=== PATIENT | male | born 1945 | race Caucasian/White ===

== ENCOUNTER 2018-12-13 20:41 | Inpatient (IN) | payer OTHER ==
[~2018-12-13] VITALS: Ht 175.3 cm; Wt 82.7 kg
[2018-12-13 20:47] VITALS: Ht 175.3 cm; Wt 82.7 kg
--- NOTE | 2018-12-13 20:56 | NUR ---
PT RESTING IN BED, AAOX4 WITH C/O 4/10 EPIGASTRIC PAIN SINCE THIS AFTERNOON. PT STATES HE THINKS HE DRANK BAD WATER OR HE IS REACTING FROM TAKING GAS RELIEF MEDICATION THIS AFTERNOON. PT DENIES ANY N/V/D/C, FEVERS, URINARY PROBLEMS OR RESP ILLNESS. NO SIGNS OF DISTRESS AT THIS TIME. AT BEDSIDE.
[2018-12-13 21:26] LABS: BASOPHIL % 0 % (0-2); PLATELET COUNT 267 x10^3mcL (130-400); RED CELL DISTRIBUTION WIDTH 13.5 % (11.5-14.5)
[2018-12-13 21:39] LABS: CALCIUM 9.3 mg/dL (8.5-10.1); CARBON DIOXIDE 28.2 mmol/L (21-32); CHLORIDE SERUM 93 mmol/L (98-107); CREATININE SERUM 1.3 mg/dL (0.7-1.3); GLUCOSE SERUM 118 mg/dL (74-106); POTASSIUM SERUM 4.4 mmol/L (3.5-5.1); SODIUM SERUM 130 mmol/L (136-145)
[2018-12-13 21:43] LABS: ALBUMIN 3.7 g/dL (3.4-5.0); ALKALINE PHOSPHATASE 50 U/L (46-116); ALT/SGPT 26 U/L (16-63); AST/SGOT 19 U/L (15-37); BILIRUBIN TOTAL 0.8 mg/dL (0.20-1.00); TOTAL PROTEIN, SERUM 7.4 g/dL (6.4-8.2)
[2018-12-13 21:53] LABS: microscopic required? NO
[2018-12-13 22:17] LABS: UA SPECIFIC GRAVITY 1.015 (1.005-1.035); urine erythrocyte NEGATIVE (NEGATIVE)
--- NOTE | 2018-12-13 22:25 | NUR ---
PT RESTING IN BED WITH AT BEDSIDE. NO SIGNS OF DISTRESS AT THIS TIME.
--- NOTE | 2018-12-13 23:18 | NUR ---
PT OFF OF FLOOR TO CT SCAN.
--- NOTE | 2018-12-13 23:57 | NUR ---
PT UP TO RESTROOM WITH .
[2018-12-14] MEDS ORDERED: MELOXICAM15 M1 PO (00:34)
--- NOTE | 2018-12-14 00:46 | NUR ---
PT RESTING IN BED WITH EYES CLOSED WITH NO SIGNS OF DISTRESS AT THIS TIME.
--- NOTE | 2018-12-14 01:16 | NUR ---
REPORT GIVEN TO DIA HDEZ.
--- NOTE | 2018-12-14 01:35 | NUR ---
RECEIVED PT FROM ED VIA JUW[facility]ERNEY ACCOMPANIED BY EMT AND . PT ABLE TO AMBULATE WITH STEADY GAIT TO BED. NO ACUTE DISTRESS NOTED. EVEN AND UNLABORED RESPIRATIONS NOTED ON RA. IV PATENT AND INTACT. MEDSURG PT. C/O 1-2 HEADACHE AND 3/10 ABD PAIN. NO PAIN MEDICATIONS NEEDED AT THIS TIME PER PT. INFORMED PT ABOUT NPO STATUS, PT UNDERSTOOD. ORIENTED PT TO ROOM AND SURROUNDINGS. INSTRUCTED ON USE OF CALL LIGHT WHEN IN NEED OF ASSISTANCE. BED IN LOWEST POSITION. SIDE RAILS UPX2. CALL LIGHT WITHIN REACH. WILL CONTINUE TO MONITOR.
[2018-12-14 02:26] VITALS: BP 111/71
[2018-12-14 05:54] VITALS: BP 94/62
--- NOTE | 2018-12-14 07:00 | NUR ---
RECEIVED REPORT FROM SAVANAH RN, PT RESTING IN BED, IN NO ACUTE RESP DISTRESS
--- NOTE | 2018-12-14 07:20 | NUR ---
PT IN BED, RESTING W/ EYES CLOSED, DENIED PAIN/CP/PRESURE/NORIEGA, DENIED N/V/D/DIZZINESS, VERBAL, NPO, ABLE TO MAKE NEEDS KNOWN, PERRLA, NO REDNESS/DRAINAGE, IN NO ACUTE RESP DISTRESS, RESP EVEN AND NON-LABORED, LUNGS CTA, CHEST RISE SYMMETRICALLY, ABD ROUND AND MILD TENDER TO TOUCH, REPORT MILD DISCOMFORT TO ABD S/P ACUTE APPY, CONTINENT, BPR, SKIN D/W/I, IV PATENT AND NO INFILTRATION, CAP REFILL < 2 SECS, PALP PULSES, BS ACTIVE X 4, LAST BM 12/13/18, SOFT/PER PT REPORT, ABLE TO MOVE ALL EXTREMITIES, AMBULATORY, ALL NEEDS MET AT THIS TIME, SAFETY PRECAUTION FOLLOWED, CONTINUE TO MONITOR
--- NOTE | 2018-12-14 07:30 | NUR ---
PT WENT DOWN TO OR FOR S/P APPY, ASSSITED BY 2 RNs, NPO, NOT IN ACUTE RESP DISTRESS, DENIED PAIN AT THIS TIME, REPORT MILD DISCOMFORT TO ABD, PT CALLED AND NOTIFY UPDATE CONDITION, INFORMED CONSENT SIGNED, JULIA BATH GIVEN, PREP-OP DONE, ALL NEEDS MET, CONTINUE TO MONITOR
--- NOTE | 2018-12-14 07:36 | NUR ---
RECEIVED CALL FROM DR. OQUENDO. CONSENT SIGNED FOR LAP. APPENDECTOMY WITH POSS. OPEN APPENDECTOMY AND INDICATED PROCEDURES. CHECKLIST STARTED. REPORT GIVEN TO .NET ARCHITECT. WILL ENDORSE TO ONCOMING SHIFT.
--- NOTE | 2018-12-14 09:50 | NUR ---
RECEIVED REPORT FROM OR NURSE, PT POST-OP S/P LAP ACUTE APPY, PT BACK TO ROOM ASSITED BY 2 RNs VIA JUWANRYUE, AT BESIDE, REPORT NO PAIN/DISCOMFORT AT THIS TIME, 3 DRESSING TO ABD C/D/I, NO ACTIVE BLEEDING NOTED, PIC IN CHART, UNDER GEN AND LOCAL ANESTHESIA DURING SURGERY, AXOX4 AT THIS TIME, HOUSE MONITOR TO (L) ANKLE IN PLACE AND WRAP W/ JINA BANDAID DURING SURGERY, PER PT, KEEP JINA BANDAID ON, IN NO ACUTE RESP DISTRESS, SAFETY PROTOCOL FOLLOWED, V/S: 98.1, 115/77, 88, 96% AT RA, 16, 0/10, IV INPLACE AND INFUSING WELL, ALL NEEDS MET AT THIS TIME, PT RESTIGN IN BED, WILL CONTINUE TO MONITOR
[2018-12-14 10:20] VITALS: BP 115/77
--- NOTE | 2018-12-14 10:45 | NUR ---
PT IN BED, IN NO ACUTE RESP DISTRESS, AT BEDSIDE, AWARE OF D/C HOME TODAY AFTER 1PM, QUESTION ASKED AND ANSWERED, NO FURTHER CONCERNS NEEDED WHEN ASKED, WILL CONTINUE TO MONITOR
--- NOTE | 2018-12-14 11:16 | NUR ---
PT SLEEPING IN BED, IN NO APPARENT DISTRESS, DRESSING CDI, IV PATENT AND INFUSING WELL, AT BEDSIDE, COTNINUE TO MONITOR
--- NOTE | 2018-12-14 12:32 | NUR ---
D/C PAPER SIGNED AND KEPT IN CHART, EDU ABOUT D/C GIVEN, NO FURTHER CONCERN NEEDED WHEN ASKED, PRESCRIPTION GIVEN TO PT
--- NOTE | 2018-12-14 14:01 | NUR ---
IV REMOVED, IV CATH TIP INTACT, NO ACTIVE BLEEDING NOTED, PT REQUESTED CLEAR JELLO AND ICE CHIP, REQUESTED PROVIDED PER MD ORDER, AT BEDSIDE, CONTINUE TO MONITOR
--- NOTE | 2018-12-14 14:14 | NUR ---
EDUCATION A/B BLEEDING, WOUND CARE AND INFECTION REGCONIZATION GIVEN, VERBALLY UNDERSTANDING, PRESCRIPTION IN D/C PACKAGE, AWARE TO TAKE IT ASA AVAILABLE, NO FURTHER CONCERN NEEDED WHEN ASKED, WOUND CARE SUPPLY AND BANDAID GIVEN TO PT AND FOR AT LEAST 7 DAYS SUPPLY, PT ASSSITED TO LOBBY VIA WC BY NURSING STAFF, DRIVE PT HOME, PT LEFT IN NO ACUTE DISTRESS.
== END 2018-12-14 14:23 | disposition home or self-care (01) | DRG 342 ==
LOC: ED 20:41 → MU 12-14 00:34
PROVIDERS: Emergency Medicine; Family Medicine Addiction Medicine; ADMIT Internal Medicine
PROC: 0DTJ4ZZ Resection of Appendix, Percutaneous Endoscopic Approach (ICD-10-PCS; principal; 2018-12-14 07:30)
DX: K35.80 Unspecified acute appendicitis (principal); E87.2 Acidosis; M19.90 Unspecified osteoarthritis, unspecified site; D72.829 Elevated white blood cell count, unspecified; Z68.27 Body mass index [BMI] 27.0-27.9, adult
CPT/HCPCS: G0378; J0330; J0696; J1170; J2001; J2270; J2405; J2543; J2704; J2710; J3010; J3490; J7030; J7042; J7060; J7120; Q0092; Q9967